=== PATIENT | female | born 1980 | race Caucasian/White ===

== ENCOUNTER → 2017-12-10 09:35 | Outpatient (CLI) | payer OTHER, SELFPAY ==
--- NOTE | 2017-12-10 10:09 | RAD_ITS ---
STUDY: X-RAY CHEST REASON FOR EXAM: Female, 37 years old. Fever and cough. TECHNIQUE: Frontal and lateral views of the chest. COMPARISON: None. FINDINGS: The lungs are clear and expanded. There is no demonstrated pleural abnormality. Normal size heart. Normal mediastinum and gabe. Normal visualized pulmonary arteries. Normal visualized aortic arch and descending thoracic aorta. Normal visualized thoracic spine. Normal visualized ribs, clavicles, and shoulders. There is no demonstrated abnormality of the visualized soft tissue structures of the upper abdomen. RAD/Chest PA and Lateral IMPRESSION: Normal x-ray examination of the chest. Electronically Signed: Richar Gaytan MD at 19:53 EDT , Service support ,
== END ==
DX: R05 Cough (principal); R50.9 Fever, unspecified
CPT/HCPCS: 71046